=== PATIENT | male | born 1990 | race Two or more races ===

== ENCOUNTER 2021-03-28 11:33 | Emergency (ER) | payer OTHER ==
[~2021-03-28] VITALS: Ht 177.8 cm; Wt 77.1 kg
[2021-03-28] MEDS ORDERED: cefTRIAXone 1GM/50ML D5W 50 ML IV ONE (11:45)
[2021-03-28] MEDS ORDERED: TETANUS-DIPTH-ACEL PERTUSSIS 0.5ML SYR Tdap IM ONE (11:45)
[2021-03-28 12:14] VITALS: BP 135/86
== END 2021-03-28 13:31 | disposition left against medical advice (07) ==
LOC: ER 11:33 → EDBD 11:33 → ER 13:31
DX: S83.91XA Sprain of unspecified site of right knee, initial encounter (principal); V43.52XA Car driver injured in collision with other type car in traffic accident, initial encounter; Y93.89 Activity, other specified; Y92.488 Other paved roadways as the place of occurrence of the external cause; Y99.8 Other external cause status
CPT/HCPCS: 70450; 73560